=== PATIENT | male | born 1995 | race African-American/Black ===

== ENCOUNTER 2018-02-26 17:03 | Emergency (ER) | payer MEDICAID ==
[~2018-02-26] VITALS: Ht 195.6 cm; Wt 132.0 kg
[2018-02-26 17:29] VITALS: BP 138/99
[2018-02-26] MEDS ORDERED: VENL150C2 PO (17:32)
== END 2018-02-26 17:49 | disposition home or self-care (01) ==
LOC: ER 17:37
DX: F32.9 Major depressive disorder, single episode, unspecified (principal); Z76.0 Encounter for issue of repeat prescription
CPT/HCPCS: 99283